=== PATIENT | female | born 1965 | race Caucasian/White ===

== ENCOUNTER → 2019-05-21 09:59 | Outpatient (BNVA) | payer BC, SELFPAY | PROVIDERS: Family Provider Nurse Practitioner Family; Visit Provider Nurse Practitioner | DX: M79.674 Pain in right toe(s) (principal); M79.89 Other specified soft tissue disorders | CPT/HCPCS: 73630; 80053; 84550; 85025 ==

== ENCOUNTER → 2019-09-29 10:06 | Outpatient (BNVA) | payer BC, SELFPAY | PROVIDERS: Family Provider Nurse Practitioner Family; PCP Nurse Practitioner; Visit Provider Nurse Practitioner Family | DX: L40.9 Psoriasis, unspecified (principal); R21 Rash and other nonspecific skin eruption; Z79.899 Other long term (current) drug therapy | CPT/HCPCS: 36415; 80053; 85007; 85027; 86480; 86803; 87340 ==

== ENCOUNTER → 2019-11-02 11:14 | Outpatient (BNVA) | payer BC, SELFPAY | PROVIDERS: Family Provider Nurse Practitioner Family; PCP Nurse Practitioner; Visit Provider Nurse Practitioner Family | DX: M25.562 Pain in left knee (principal) | CPT/HCPCS: 73562 ==

== ENCOUNTER → 2020-12-05 10:08 | Outpatient (BNVA) | payer BC, SELFPAY | PROVIDERS: Family Provider Nurse Practitioner Family; PCP Nurse Practitioner Family; Visit Provider Nurse Practitioner Family | DX: L40.0 Psoriasis vulgaris (principal) | CPT/HCPCS: 80053; 85025; 86480; 86706; 86803 ==

== ENCOUNTER → 2021-01-12 11:36 | Outpatient (BNVA) | payer BC, SELFPAY | PROVIDERS: Family Provider Nurse Practitioner Family; PCP Nurse Practitioner Family; Visit Provider Nurse Practitioner Family | DX: L40.9 Psoriasis, unspecified (principal); Z79.899 Other long term (current) drug therapy | CPT/HCPCS: 87340 ==

== ENCOUNTER → 2021-03-13 11:11 | Outpatient (BNVA) | payer BC, SELFPAY | PROVIDERS: Family Provider Nurse Practitioner Family; PCP Nurse Practitioner Family; Visit Provider Internal Medicine | DX: L40.50 Arthropathic psoriasis, unspecified (principal); L40.9 Psoriasis, unspecified; R76.8 Other specified abnormal immunological findings in serum; Z11.59 Encounter for screening for other viral diseases; F17.210 Nicotine dependence, cigarettes, uncomplicated | CPT/HCPCS: 99204 ==

== ENCOUNTER 2021-03-13 12:37 | Outpatient (CLI) | payer BC, SELFPAY ==
--- NOTE | 2021-03-13 12:45 | XR_ITS ---
WS: [email or web address] Exam: XR hand RT 2V [id number] Date/Time of Exam: 03/13/2021 12:48 PM Reason For Exam: L40.9 - Psoriasis, unspecified Findings: No fractures, soft tissue swelling, or unusual calcifications are noted. The hand shows normal bony alignment. There is no irregularity of the bony architecture. XR/XR hand RT 2V 10422 IMPRESSION: Normal right hand.
--- NOTE | 2021-03-13 12:45 | XR_ITS ---
WS: [email or web address] Exam: XR cervical spine fl/ex 41007 Date/Time of Exam: 03/13/2021 12:48 PM Reason For Exam: L40.9 - Psoriasis, unspecified No fracture or dislocation. No flexion or extension instability. There is spondylosis and degenerativ e disc change from C5 to C7. Minimal facet DJD at all levels. Normal paraspinal soft tissues. XR/XR cervical spine fl/ex [id number] IMPRESSION: 1. No fracture or dislocation. No flexion or extension instability. 2. Moderate degenerative changes from C5 to C7 as noted above.
--- NOTE | 2021-03-13 12:45 | XR_ITS ---
WS: [email or web address] Exam: XR foot RT 2V [id number] Date/Time of Exam: 03/13/2021 12:48 PM Reason For Exam: M25.50 - Pain in unspecified joint Exam: XR foot RT 2V Date/Time of Exam: 03/13/2021 12:48 PM Reason For Exam: M25.50 - Pain in unspecified joint Findings: The foot was examined in multiple views and reveals no fractures or displacements of bone. No bony a nomalies are noted. The bony elements are in adequate alignment. The joint spaces are smooth and eq uidistant. Calcification in the Achilles tendon at the calcaneal attachment. XR/XR foot RT 2V IMPRESSION: Negative foot.
--- NOTE | 2021-03-13 12:45 | XR_ITS ---
WS: [email or web address] Exam: XR knee RT 1-2V 65004 Date/Time of Exam: 03/13/2021 12:48 PM Reason For Exam: L40.9 - Psoriasis, unspecified Exam: XR knee RT 1-2V 48392 Date/Time of Exam: 03/13/2021 12:48 PM Reason For Exam: L40.9 - Psoriasis, unspecified No fracture or dislocation noted. Articular relationships are intact. No joint effusion. XR/XR knee RT 1-2V 84616 Impression: Normal right knee Kellgren-Dat Classification: 0
--- NOTE | 2021-03-13 12:45 | XR_ITS ---
WS: [email or web address] Exam: XR sacroiliac jts m 3V 15741 Date/Time of Exam: 03/13/2021 12:48 PM Reason For Exam: L40.9 - Psoriasis, unspecified No fracture or dislocation. Moderate degenerative change of both SI joints. Both joints are open. No sign of bone destruction. Postoperative changes in the pelvis. XR/XR sacroiliac jts m 3V 98284 IMPRESSION: 1. DJD of the bilateral SI joints. 2. No evidence of fracture, bone destruction or SI joint fusion.
--- NOTE | 2021-03-13 12:45 | XR_ITS ---
WS: [email or web address] Exam: XR knee LT 1-2V 04666 Date/Time of Exam: 03/13/2021 12:48 PM Reason For Exam: L40.9 - Psoriasis, unspecified Comparison 11/02/2019. No fracture or dislocation noted. Articular relationships are intact. No joint effusion. XR/XR knee LT 1-2V 28319 Impression: Normal left knee Kellgren-Dat Classification: 0
--- NOTE | 2021-03-13 12:45 | XR_ITS ---
WS: [email or web address] Exam: XR lumbar spine 2-3V* [id number] Date/Time of Exam: 03/13/2021 12:48 PM Reason For Exam: L40.9 - Psoriasis, unspecified No fracture or dislocation. Disc spaces are preserved. Mild dextroscoliosis. Mild DJD of the SI joint s. Minimal spondylosis. XR/XR lumbar spine 2-3V* [id number] IMPRESSION: 1. Mild degenerative changes and slight dextroscoliosis. 2. No fracture or malalignment.
--- NOTE | 2021-03-13 12:45 | XR_ITS ---
WS: [email or web address] Exam: XR hand LT 2V [id number] Date/Time of Exam: 03/13/2021 12:48 PM Reason For Exam: L40.9 - Psoriasis, unspecified Findings: No fractures, soft tissue swelling, or unusual calcifications are noted. The hand shows normal bony alignment. There is no irregularity of the bony architecture. XR/XR hand LT 2V [id number] IMPRESSION: Normal left hand.
--- NOTE | 2021-03-13 12:45 | XR_ITS ---
WS: [email or web address] Exam: XR foot LT 2V [id number] Date/Time of Exam: 03/13/2021 12:48 PM Reason For Exam: M25.50 - Pain in unspecified joint Exam: XR foot LT 2V 98280 Date/Time of Exam: 03/13/2021 12:48 PM Reason For Exam: M25.50 - Pain in unspecified joint No acute fracture or dislocation. No soft tissue foreign bodies. Articular relationships are intact. Anterior and posterior heel spurs noted. XR/XR foot LT 2V 53550 IMPRESSION: 1. No fracture or other significant finding. Calcaneal spurs.
[2021-03-13 14:37] LABS: 25 Hydroxy Vitamin D 33 ng/mL (30-100); C Reactive Protein 1.7 mg/L (0.0-4.9); Creatine Phosphokinase 76 U/L (26-192); Thyroid Stimulating Hormone 2.31 uIU/mL (0.27-4.20); Vitamin B12 359 pg/mL (232-1245)
[2021-03-13 16:47] LABS: Hepatitis B Core AB, Total Non-Reactive (Nonreactive); Hepatitis C Virus Antibody Non-Reactive (Nonreactive)
[2021-03-13 16:56] LABS: Hepatitis B Surface Antigen Non-Reactive (Nonreactive)
[2021-03-14 13:18] LABS: COMPLEMENT COMPONENT C3C 101 mg/dL (83-193); COMPLEMENT COMPONENT C4C 26 mg/dL (15-57)
[2021-03-15 11:54] LABS: Erythrocyte Sedimentation Rate 2 mm/hr (0-15)
[2021-03-15 13:58] LABS: CENTROMERE B ANTIBODY <1.0 NEG AI (<1.0 NEG); JO-1 ANTIBODY <1.0 NEG AI (<1.0 NEG); RNP ANTIBODY <1.0 NEG AI (<1.0 NEG); SCL-70 ANTIBODY <1.0 NEG AI (<1.0 NEG); SJOGREN'S ANTIBODY (SS-A) <1.0 NEG AI (<1.0 NEG); SM ANTIBODY <1.0 NEG AI (<1.0 NEG); SS-B <1.0 NEG AI (<1.0 NEG); THYROID PEROXIDASE ANTIBODIES <1 IU/mL (<9)
[2021-03-15 15:46] LABS: COMPLEMENT, TOTAL (CH50) >60 U/mL (31-60)
[2021-03-16 16:41] LABS: ANA SCREEN, IFA POSITIVE (NEGATIVE)
[2021-03-17 14:27] LABS: DNA AB (DS) CRITHIDIA,IFA NEGATIVE (NEGATIVE)
== END 2021-03-13 12:38 | disposition home or self-care (01) ==
PROVIDERS: PCP Nurse Practitioner Family; Visit Provider Internal Medicine
DX: L40.9 Psoriasis, unspecified (principal); M25.50 Pain in unspecified joint; Z11.59 Encounter for screening for other viral diseases
CPT/HCPCS: 36415; 72040; 72100; 72202; 73120; 73560; 73620; 82306; 82550; 82607; 84443; 85651; 86140; 86160; 86162; 86235; 86255; 86376; 86704; 86803; 87340

== ENCOUNTER → 2022-01-02 08:21 | Outpatient (BNVA) | payer BC, SELFPAY | PROVIDERS: Visit Provider Nurse Practitioner | DX: Z79.899 Other long term (current) drug therapy (principal); L40.0 Psoriasis vulgaris | CPT/HCPCS: 80053; 80074; 85007; 85027; 86480 ==

== ENCOUNTER → 2023-02-11 09:06 | Outpatient (BNVA) | payer BC, SELFPAY | PROVIDERS: Visit Provider Nurse Practitioner Family | DX: R50.9 Fever, unspecified (principal); H81.10 Benign paroxysmal vertigo, unspecified ear | CPT/HCPCS: 87400; 87426 ==

== ENCOUNTER 2023-02-19 10:06 | Emergency (ER) | payer BC, SELFPAY ==
--- NOTE | 2023-02-19 10:34 | ED_ITS ---
HPI - Neuro Symptoms/Deficit General: Chief Complaint: Dizziness Stated Complaint: Head pain, left side of face numb Time Seen by Provider: 02/19/23 10:07 Source: patient Mode of arrival: ambulatory Limitations: no limitations History of Present Illness: Patient is a nice 57-year-old female presents to ED today with a complaint of left-sided facial numbness. Patient states symptoms started approximately 7 to 10 days ago. She was reportedly diagnosed with a left ear infection and placed on antibiotics. Patient states her symptoms have failed to improve. She is complaining of numbness affecting the entire left side of her face as well as the left side of her tongue stating she feels like she is biting her tongue and cheek when she eats secondary to symptoms. She has not noticed any facial drooping, slurred speech, aphasia or visual defects. She has no complaints of numbness, tingling, loss of sensation, or weakness to her extremities. She does complain of some intermittent headaches and dizziness. Dizziness is not affected gait and she is ambulatory here without difficulty or assistance. Onset (ago): day(s) Location: left face History of same: No Quality: numb Relieving factors: none Exacerbating factors: none On Anticoagulants: No Associated symptoms: Reports headache(s); Deny chest pain, malaise, nausea, syncope or vomiting Treatments Prior to Arrival: none Review of Systems Const: Denies: fever(s), chills, body aches, fatigue or malaise Eyes: Denies: change in vision, blurry vision, photophobia, floaters or seeing flashes ENMT: Denies: throat pain, odynophagia, ear discharge, nasal discharge, nasal congestion or sinus pain Card: Denies: chest pain, palpitations, irregular heart rhythm, lightheadedness, syncope or dyspnea on exertion Resp: Denies: dyspnea, productive cough or pain on inspiration GI: Denies: abdominal pain, nausea, vomiting, heartburn or diarrhea : Denies: dysuria Musc: Denies: neck pain, back pain or joint pain Skin/Breast: Denies: rash Neuro: Reports: headache(s), sensory changes (L facial) and dizziness; Denies: numbness in extremities, weakness in extremities, lack of coordination, difficulty walking, frequent falls, confusion, behavioral changes, Slurred speech present, difficulty communicating thoughts or seizure-like activity PFS ED PFSH: Medical History Acute bacterial sinusitis Acute otitis media, bilateral BPV (benign positional vertigo) delivery delivered Facial paresthesia Head pain Lower respiratory infection Otitis media Plaque psoriasis Psoriasis Psoriatic arthritis Surgical History History of appendectomy History of hernia surgery History of hysterectomy Family History Mother Cancer Diabetes Hyperlipidemia Hypertension Stroke Sister Cancer Diabetes Daughter Diabetes Father Stroke Heart attack Rheumatoid arthritis Denies family history of Lupus Social History Smoking and tobacco/nicotine status: current every day tobacco/nicotine user cigarettes Packs smoked per day: 1 Second hand smoke exposure: No Alcohol intake: never Substance/Drug Use: never NIH stroke score NIHSS: Level Of Consciousness - 1a: 0 Level Of Consciousness Questions - 1b: Both Correct Level Of Consciousness Commands - 1c: Both Correct Best Gaze - 2: Normal Visual Heath - 3: No Visual Loss Facial Palsy - 4: Normal Motor Arm Right - 5: No Drift Motor Arm Left - 5: No Drift Motor Leg Right - 6: No Drift Motor Leg Left - 6: No Drift Limb Ataxia - 7: Absent Sensory - 8: Mild To Moderate Loss (L facial ) Best Language - 9: No Aphasia Dysarthia - 10: Normal Extinction And Inattention - 11: 0 Score: Total Score: 1 Physical Exam Const: COMMON NORMALS: no acute distress, average body habitus, patient oriented x3, no limitations, healthy appearing, alert and well nourished GENERAL APPEARANCE: cooperative ORIENTATION/CONSCIOUSNESS: Yes awake, Yes oriented to person, Yes oriented to place and Yes oriented to time HENMT: COMMON NORMALS: normocephalic, atraumatic, hearing grossly normal bilaterally, external ears normal, EAC's normal, TM's normal bilaterally and Normal external nose present HEAD & SCALP: normal to inspection, normocephalic and atraumatic FACE & SINUS: normal facial exam, sinuses nontender and face symmetric NOSE: Normal external nose present EXTERNAL EAR: Yes external ears normal EXTERNAL AUDITORY CANAL: EAC's normal TYMPANIC MEMBRANE: TM's normal bilaterally MOUTH: tongue normal THROAT: posterior oropharynx normal Eye: COMMON NORMALS: Equal, round and reactive pupils present and EOMs intact bilaterally GENERAL EYE: appearance normal, both eyes and all related structures and normal light reflex PUPIL: Yes Equal, round and reactive pupils present DIRECT OPHTHALMOSCOPY: Yes normal light reflex Neck/C-Spine: COMMON NORMALS: full ROM, no lymphadenopathy, supple and no meningeal signs Chest: COMMONS NORMALS: normal inspection of the chest Resp: COMMON NORMALS: normal respiratory effort and clear to auscultation bilaterally AUSCULTATION: clear to auscultation bilaterally Cardio: COMMON NORMALS: regular rate and regular rhythm RATE: regular rate RHYTHM: regular rhythm Extremity: COMMON NORMALS: normal to inspection GENERAL: Yes normal exam except as noted Neuro: YOSELIN COMA SCALE: document GCS findings Yoselin coma scale eye opening: Spontaneous [place] coma scale verbal response: Orientated [place] coma scale motor response: Obey commands [place] coma scale total score: 15 COMMON NORMALS: patient oriented x3, moves all extremities, no focal motor deficits, no sensory deficits noted and gait normal SENSORIUM/ORIENTATION: Yes alert, Yes oriented to person, Yes oriented to place and Yes oriented to time MENINGEAL SIGNS: Yes no meningeal signs CRANIAL NERVES: Yes CN normal except as noted and Yes CN V (trigeminal) CN V laterality: left CN V left: all branch sensations abnormal COORDINATION/BALANCE: isayij-ew-[id number] test normal and [id number]-[id number] test normal SPEECH: speech normal GAIT: Yes Normal gait present MOTOR EXAM: 5/5 motor strength present throughout COORDINATION: [id number]-[id number] test normal and jetq-wy-[id number] test normal Skin: COMMON NORMALS: no rashes or lesions noted GENERAL SKIN EXAM: no rashes or lesions noted Course Vital Signs: Vital signs: Vital Signs Pulse Rate 68 02/19/23 11:31 Respiratory Rate 68 H 02/19/23 11:42 Blood Pressure 98/62 02/19/23 11:42 Pulse Oximetry 98 02/19/23 11:42 Oxygen Delivery Me thod Room Air 02/19/23 11:42 MDM - Neuro Symptoms/Deficit Medical Decision Making Patient is a 57-year-old female here for complaints of paresthesias/numbness to the left side of her face also affecting the left side of her tongue which interferes with eating/chewing. No other neurologic deficts noted. Symptoms have been present for 7 to 10 days. She has intermittent headaches and dizziness. CT head is negative. CTA head/neck is normal. We will place CM referral to neurology for further evaluation. Lab Data 02/19/23 10:52 02/19/23 10:52 Laboratory Results WBC 7.08 10^3/uL (3.29-11.43) 02/19/23 10:52 RBC 4.28 10^6/uL (3.85-5.65) 02/19/23 10:52 Hgb 14.00 g/dL (11.27-16.99) 02/19/23 10:52 Hct 41.2 % (36-47) 02/19/23 10:52 MCV 96.3 fl (85-98) 02/19/23 10:52 MCH 32.7 pg (27-33) 02/19/23 10:52 MCHC 34.0 g/dL (30-55) 02/19/23 10:52 RDW 11.9 % (12.1-15.1) L 02/19/23 10:52 Plt Count 308 10^3/cmm (157-399) 02/19/23 10:52 MPV 9.0 fL (7.4-10.4) 02/19/23 10:52 Neut % (Auto) 51.5 % 02/19/23 10:52 Lymph % (Auto) 36.4 % 02/19/23 10:52 [place] % (Auto) 5.4 % 02/19/23 10:52 Eos % (Auto) 5.1 % 02/19/23 10:52 Baso % (Auto) 1.3 % 02/19/23 10:52 Neut # (Auto) 3.65 10^3/uL (1.8-7.7) 02/19/23 10:52 Lymph # (Auto) 2.6 10^3/uL (0.8-4.8) 02/19/23 10:52 [place] # (Auto) 0.4 10^3/uL (0.2-0.9) 02/19/23 10:52 Eos # (Auto) 0.4 10^3/uL (0.0-0.8) 02/19/23 10:52 Baso # (Auto) 0.1 10^3/uL (0.0-0.1) 02/19/23 10:52 Nucleated RBC % (auto) 0 % 02/19/23 10:52 Nucleated RBCs # 0.0 /100WBC 02/19/23 10:52 Sodium 139 mmol/L (136-145) 02/19/23 10:52 Potassium 4.0 mmol/L (3.5-5.1) 02/19/23 10:52 Chloride 105 mmol/L (98-107) 02/19/23 10:52 Carbon Dioxide 26 mmol/L (22-29) 02/19/23 10:52 Anion Gap 12.0 (5-19) 02/19/23 10:52 BUN 9 mg/dL (6-20) 02/19/23 10:52 Creatinine 0.6 mg/dL (0.5-0.9) 02/19/23 10:52 GFR Calculation 103.4 mL/min (90-130) 02/19/23 10:52 Glucose 82 mg/dL (65-115) 02/19/23 10:52 Calculated Osmolality 286 mOsm/kg (285-295) 02/19/23 10:52 Calcium 8.7 mg/dL (8.5-10.5) 02/19/23 10:52 Total Bilirubin 0.5 mg/dL (0.15-1.2) 02/19/23 10:52 AST 10 U/L (0-32) 02/19/23 10:52 ALT 6 U/L (0-33) 02/19/23 10:52 Alkaline Phosphatase 56 U/L (35-105) 02/19/23 10:52 Total Protein 6.3 g/dL (6.6-8.7) L 02/19/23 10:52 Albumin 4.3 g/dL (3.5-5.2) 02/19/23 10:52 Globulin 2.0 g/dL (1.3-4.6) 02/19/23 10:52 All radiology interpretation(s) finalized by discharge Discharge Plan Discharge Patient Disposition: Home Clinical Impression: Left facial numbness Condition: Stable Prescriptions: No Action Tremfya 100 mg/mL auto-injector 100 mg SUBCUT .EVERY 8 WEEKS cefdinir 300 mg capsule 300 mg PO BID 10 Days Qty: 20 0RF Rx Instructions: for 10 days (rx filled 02/12/23) Tylenol Ex Str Rapid Release 500 mg Tablet 1,000 mg PO Q6H PRN (Reason: Pain) meclizine 12.5 mg Tablet 12.5 mg PO QID PRN (Reason: Dizziness) Discharge Orders: Discharge ED (Routine); Ordered 02/19/23 Ordered By: Che Donaldson Referrals: DANIELITO Saab, ASSISTED LIVING ASSISTANT [Primary Care Provider] - Coding Level of Care Code ED Dandy Tender for Navneet Cohen
--- NOTE | 2023-02-19 10:34 | CT_ITS ---
WS: [email or web address] CTA HEAD AND NECK TECHNIQUE: Contrast enhanced CTA of the head and neck with coronal and sagittal reformatted images an d maximum intensity projection (MIP) images. NASCET criteria utilized. CLINICAL INFORMATION: L sided facial numbness, headaches COMPARISON: None. DLP: 1579.[address] scans at [facility] use at least one of these dose optimization techniques: automated e xposure control; mA and/or kV adjustment per patient size (includes targeted exams where dose is matc hed to clinical indication); or iterative reconstruction. FINDINGS: RIGHT: RIGHT common carotid artery is patent. No significant RIGHT ICA stenosis. RIGHT ICA is patent to the skull base. LEFT: LEFT common carotid artery is patent. No significant LEFT ICA stenosis. LEFT ICA is patent to t he skull base. INTRACRANIAL CTA: LEFT dominant vertebral artery. Smaller but patent RIGHT vertebral artery. Basilar artery is patent. Normal vascularity to the [employer] territory bilaterally. Normal vascularity to the MELANY and MCA territorie s bilaterally. No evidence of proximal flow-limiting stenosis or aneurysm. Emphysematous changes in the lung apices. Normal thyroid gland. Mastoid air cells are well aerated. M ild mucosal thickening in the paranasal sinuses. IMPRESSION: Normal intracranial and neck CTA
--- NOTE | 2023-02-19 10:35 | CT_ITS ---
WS: [email or web address] CT HEAD TECHNIQUE: Noncontrast CT of the head obtained from the skullbase to the vertex. CLINICAL INFORMATION: headaches, L facial numbness COMPARISON: None. DLP: 1579.[address] scans at [facility] use at least one of these dose optimization techniques: automated e xposure control; mA and/or kV adjustment per patient size (includes targeted exams where dose is matc hed to clinical indication); or iterative reconstruction. FINDINGS: No evidence of intracranial hemorrhage or mass effect. Ventricular system and basal cisterns are pepe nt. No extra-axial fluid collections. No evidence of mass or mass effect. Normal juárez-white different iation. Mild mucosal thickening of the paranasal sinuses. Mastoid air cells are well aerated. IMPRESSION: 1. No evidence of intracranial hemorrhage or mass effect. 2. No acute intracranial findings.
[2023-02-19 11:05] LABS: Basophils # 0.1 10^3/uL (0.0-0.1); Basophils % 1.3 %; Eosinophils # 0.4 10^3/uL (0.0-0.8); Eosinophils % 5.1 %; Hematocrit 41.2 % (36-47); Lymphocytes # 2.6 10^3/uL (0.8-4.8); Lymphocytes % 36.4 %; Mean Corpuscular Hemoglobin 32.7 pg (27-33); Mean Corpuscular Volume 96.3 fl (85-98); Monocytes # 0.4 10^3/uL (0.2-0.9); Monocytes % 5.4 %; Neutrophils # 3.65 10^3/uL (1.8-7.7); Neutrophils % 51.5 %; Nucleated Red Blood Cells % 0 %; Platelet Count 308 10^3/cmm (157-399); Red Blood Count 4.28 10^6/uL (3.85-5.65); Red Cell Distribution Width 11.9 % (12.1-15.1); White Blood Count 7.08 10^3/uL (3.29-11.43)
[2023-02-19 11:17] LABS: Alanine Aminotransferase 6 U/L (0-33); Albumin Level 4.3 g/dL (3.5-5.2); Alkaline Phosphatase 56 U/L (35-105); Aspartate Amino Transferase 10 U/L (0-32); Blood Urea Nitrogen 9 mg/dL (6-20); Calcium 8.7 mg/dL (8.5-10.5); Carbon Dioxide 26 mmol/L (22-29); Chloride 105 mmol/L (98-107); Glomerular Filtration Rate 103.4 mL/min (90-130); Glucose 82 mg/dL (65-115); Osmolality Calculated 286 mOsm/kg (285-295); Sodium 139 mmol/L (136-145); Total Bilirubin 0.5 mg/dL (0.15-1.2); Total Protein 6.3 g/dL (6.6-8.7)
[2023-02-19 11:31] VITALS: BP 98/62; PULSE 68; RESP 16; O2SAT 98
[2023-02-19 11:42] VITALS: BP 98/62; RESP 68; O2SAT 98
[2023-02-19] MEDS: iohexol 350 mg/mL 500 mL Btl (per mL) IV (11:51)
--- NOTE | 2023-02-19 18:06 | DCPLANNER ---
Message sent to Neurology for Lt side facial numbness
== END 2023-02-19 13:19 | disposition home or self-care (01) ==
PROVIDERS: Emergency Provider Physician Assistant; PCP Nurse Practitioner Family
DX: R20.0 Anesthesia of skin (principal); F17.210 Nicotine dependence, cigarettes, uncomplicated
CPT/HCPCS: 36415; 70450; 70496; 70498; 80053; 85025; 99285; Q9967

== ENCOUNTER 2023-03-21 07:31 | Outpatient (CLI) | payer BC, SELFPAY ==
--- NOTE | 2023-03-21 08:00 | MR_ITS ---
WS: [email or web address] MRI HEAD WITH CONTRAST TECHNIQUE: Sagittal T1, T2 axial, T2 axial FLAIR, axial susceptibility weighted imaging, axial diffus ion weighted images, and coronal T2 images were obtained. Pre and post-T1 axial and post T1 coronal i mages. ADC and FSPGR images. CLINICAL INFORMATION: G50.0 - Trigeminal neuralgia COMPARISON: CT head 02/19/2023 FINDINGS: No evidence of restricted diffusion to suggest acute ischemia. Ventricular system and basilar cistern s are patent. Normal posterior fossa. Normal vascular flow voids at the skull base. No extra-axial fl uid collections. No evidence of mass or mass effect. Mild mucosal thickening in the paranasal sinuses . Fluid in the maxillary sinuses compatible with sinusitis. Mastoid air cells are well aerated. Linda l posterior nasopharynx. No hemosiderin on the susceptibility weighted images. Mild small vessel changes. No significant paren chymal volume loss. Normal optic chiasm and pituitary infundibulum. Temporal lobes and hippocampal fo rmations are normal in appearance. No abnormal gadolinium enhancement. Normal optic chiasm and pituitary infundibulum. Normal cavernous sinuses and Meckel's cave. Dural venous sinuses appear normal. IMPRESSION: 1. No evidence of restricted diffusion to suggest acute ischemia. 2. Mild small vessel changes. No significant parenchymal volume loss. 3. No hemosiderin on susceptibly weighted images. 4. Mild paranasal sinusitis. 5. No abnormal gadolinium enhancement. Note examination is not protocoled for trigeminal neuralgia. If persistent symptoms recommend MRI of the head without and with gadolinium enhancement with IAC/trigeminal neuralgia protocol.
[2023-03-21] MEDS: gadobenate dimeglumine 20 mL vial IV (09:01)
== END 2023-03-21 07:32 | disposition home or self-care (01) ==
LOC: RAD 07:31
PROVIDERS: PCP Nurse Practitioner Family; Visit Provider Nurse Practitioner Family
DX: G50.0 Trigeminal neuralgia (principal); H81.10 Benign paroxysmal vertigo, unspecified ear; R20.0 Anesthesia of skin; R20.2 Paresthesia of skin; R51.9 Headache, unspecified
CPT/HCPCS: 70553; A9577

== ENCOUNTER → 2023-06-26 08:39 | Outpatient (BNVA) | payer BC, SELFPAY | PROVIDERS: PCP Nurse Practitioner Family; Visit Provider Nurse Practitioner Family | DX: L40.50 Arthropathic psoriasis, unspecified (principal); L40.0 Psoriasis vulgaris; Z79.899 Other long term (current) drug therapy | CPT/HCPCS: 80053; 85025; 86480 ==

== ENCOUNTER → 2023-07-09 09:02 | Outpatient (BNVA) | payer BC, SELFPAY | PROVIDERS: PCP Nurse Practitioner Family; Visit Provider Nurse Practitioner Family | DX: L40.0 Psoriasis vulgaris (principal); Z79.899 Other long term (current) drug therapy | CPT/HCPCS: 86803; 87340 ==